=== PATIENT | female | born 1995 | race African-American/Black ===

== ENCOUNTER 2019-04-08 02:06 | Emergency (ER) | payer MEDICAID ==
[~2019-04-08] VITALS: Ht 175.3 cm; Wt 127.5 kg
[2019-04-08 02:28] VITALS: BP_SYST 129
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
--- NOTE | 2019-04-08 02:34 | NUR ---
ER-MD CAME BY BEDSIDE TO EVALUATE PT.
[2019-04-08] MEDS ORDERED: NACL 0.9% 1,000 ML IV ONE (02:40)
[2019-04-08] MEDS ORDERED: ONDANSETRON HCL 4 MG/2 ML VIAL IVP ONE (02:45)
--- NOTE | 2019-04-08 02:45 | NUR ---
GAUGE 20 IV LINE ESTABLISHED TO THE RIGHT AC. BLOOD ALSO DRAWN AND SENT TO THE LAB.
--- NOTE | 2019-04-08 02:53 | NUR ---
NS 1 LITER AT 250 ML/HR AND ZOFRAN 4 MG IVP GIVEN ORDERED.
[2019-04-08 02:58] LABS: BASOPHILS % (AUTO) 0.5 % (0.0-2.0); EOSINOPHILS # (AUTO) 0.1 K/uL (0.0-0.4); EOSINOPHILS % (AUTO) 0.9 % (0.0-4.0); HEMATOCRIT 34.3 % (36-48); HEMOGLOBIN 11.1 g/dL (12.0-16.0); LYMPHOCYTES # (AUTO) 2.9 K/uL (1.0-5.5); LYMPHOCYTES % (AUTO) 48.7 % (20.5-51.5); MEAN CORPUSCULAR HEMOGLOBIN 26 pg (27-31); MEAN CORPUSCULAR HGB CONC 32 % (32-36); MEAN CORPUSCULAR VOLUME 80 fL (79.0-98.0); MONOCYTES # (AUTO) 0.4 K/uL (0.0-1.0); MONOCYTES % (AUTO) 7.5 % (1.7-9.3); NEUTROPHILS # (AUTO) 2.5 K/uL (1.8-7.7); NEUTROPHILS % (AUTO) 42.4 % (40.0-70.0); PLATELET COUNT (AUTO) 330 K/uL (130-430); RED BLOOD CELL COUNT(AUTO) 4.29 MIL/uL (4.2-6.2); RED CELL DISTRIBUTION WIDTH 15.8 % (9.0-15.0); WHITE BLOOD COUNT (AUTO) 5.9 K/uL (4.8-10.8)
[2019-04-08 03:08] LABS: CALCIUM 8.5 mg/dL (8.4-11.0); CREATININE 0.77 mg/dL (0.55-1.30)
[2019-04-08 03:21] LABS: ALBUMIN 3.5 g/dL (3.4-4.8); TOTAL BILIRUBIN 0.2 mg/dL (0.0-1.0)
[2019-04-08] MEDS ORDERED: PANTOPRAZOLE SODIUM 40 MG/VIAL (PROTONIX) IVP ONE (03:30)
[2019-04-08 03:32] LABS: BILIRUBIN,URINE NEGATIVE (NEGATIVE); BLOOD, URINE 2+ (NEGATIVE); CLARITY/URINE CLEAR (CLEAR); COLOR,URINE YELLOW (YELLOW); GLUCOSE,URINE NEGATIVE (NEGATIVE); KETONES,URINE NEGATIVE (NEGATIVE); LEUKOCYTE ESTERASE ,URINE TRACE (NEGATIVE); NITRITE, URINE NEGATIVE (NEGATIVE); PROTEIN URINE NEGATIVE (NEGATIVE); UROBILINOGEN,URINE 0.2 (0.2-1.0)
[2019-04-08 03:40] LABS: BACTERIA,URINE FEW /HPF (None Seen); RBC,URINE 20-50 /HPF (0-3)
[2019-04-08 03:42] LABS: BARBITURATE, URINE NEGATIVE (NEG <=200); BENZODIAZEPINE, URINE NEGATIVE (NEG <=150); CANNABINOID, URINE POSITIVE (NEG <=50); COCAINE, URINE NEGATIVE (NEG <=150); METHAMPHETAMINES SCREEN,URINE NEGATIVE (NEG <=500); OPIATE, URINE NEGATIVE (NEG <=100); PHENCYCLIDINE SCREEN,URINE NEGATIVE (NEG <=25); UR TRICYCLIC ANTIDEPRESSANTS NEGATIVE (NEG <=300); URINE AMPHETAMINE NEGATIVE (NEG <=500); URINE METHADONE NEGATIVE (NEG <=200); URINE OXYCODONE SCREEN NEGATIVE (NEG <=100); URINE PROPOXYPHENE SCREEN NEGATIVE (NEG <=300)
--- NOTE | 2019-04-08 04:17 | NUR ---
PROTONIX 40 MG IVP GIVEN ORDERED. NAUSEA RESOLVED BUT PAIN STILL WORSE. WILL NOTIFY .
--- NOTE | 2019-04-08 05:14 | NUR ---
PT.FOR DISCHARGE TO HOME BUT COMPLAINED OF WORSENING OF PAIN. ER-MD MADE AWARE. TRAMADOL 50 MG PO GIVEN ORDERED.
[2019-04-08] MEDS ORDERED: traMADol HCL HCL 50 MG TABLET (ULTRAM) PO ONE (05:15)
--- NOTE | 2019-04-08 05:25 | NUR ---
DISCHARGED STABLE AND IMPROVED. PRESCRIPTION,VERBAL AND WRITTEN INSTRUCTIONS GIVEN. VERBALIZED UNDERSTANDING.
[2019-04-08 05:33] VITALS: BP_SYST 109
== END 2019-04-08 05:33 | disposition home or self-care (01) ==
LOC: SED 02:06
DX: R10.32 Left lower quadrant pain (principal); R11.2 Nausea with vomiting, unspecified; R19.7 Diarrhea, unspecified
CPT/HCPCS: 36415; 80053; 80307; 81000; 85025; 96361; 96374; 96375; 99283; C9113; J2405